=== PATIENT | male | born 1995 | race Caucasian/White ===

== ENCOUNTER 2020-08-17 14:05 | Outpatient (RCR) | payer OTHER, SELFPAY | END 2020-10-10 23:59 | LOC: IMMUN 14:05 | PROVIDERS: Visit Provider Family Medicine | DX: Z23 Encounter for immunization (principal) | CPT/HCPCS: 0001A; 0002A; 91300 ==

== ENCOUNTER → 2022-05-09 | Outpatient (CLI) | payer OTHER, SELFPAY ==
[2022-05-09 17:29] LABS: Bacteria 0 SEEN /hpf (None Seen); Mucous, Urine 0 SEEN /hpf (<or=2+); Red Blood Cells-Urine 0 SEEN /hpf (0-5); Squamous Epithelial Cells - UA 0 SEEN /hpf (0-5); White Blood Cells 0 SEEN /hpf (0-5)
[2022-05-09 18:37] LABS: Color, Urine Straw (Yellow); Glucose, Dipstick Normal (Normal); Ketone-Dipstick Negative (Negative); Leukocyte Esterase-Dipstick Negative /ul (Negative); Nitrite-Dipstick Negative (Negative); Occult Blood-Urine 150 /ul (Negative); Protein-Dipstick Negative (Negative); Urine Bilirubin Dipstick Negative (Negative); Urine Clarity Clear (Clear); Urine Urobilinogen Normal (Normal)
== END | disposition home or self-care (01) ==
PROVIDERS: Visit Provider Physician Assistant
DX: R31.9 Hematuria, unspecified (principal)
CPT/HCPCS: 81001; 87086; 87088

== ENCOUNTER 2022-10-06 16:29 | Emergency (ER) | payer OTHER, SELFPAY ==
[2022-10-06 16:31] VITALS: BP 168/107; PULSE 108; RESP 16; TEMP 36.6; O2SAT 97; BMI 23.0
--- NOTE | 2022-10-06 17:07 | EKG12_ITS ---
Test Reason : CHEST TIGHTNESS Blood Pressure : / mmHG Vent. Rate : 100 BPM Atrial Rate : 100 BPM P-R Int : 152 ms QRS Dur : 100 ms QT Int : 338 ms P-R-T Axes : 072 069 046 degrees QTc Int : 436 ms Normal sinus rhythm RSR' or QR pattern in V1 suggests right ventricular conduction delay Borderline ECG Confirmed by ADAN PANDEY, DIEGO ([id number]), book or script editor MARIA EUGENIA TOMLIN ([id number]) on 10/08/2022 8:47:54 AM Referred By: Confirmed By:DIEGO ARELLANO MD
--- NOTE | 2022-10-06 17:11 | ED.RN ---
no old EKG
[2022-10-06 17:28] LABS: Absolute Lymphocyte Count 1.43 X10^3/uL (0.83-4.51); Absolute Neutrophil Count 4.4 X10^3/uL (2.0-7.7); Basophil# 0.04 X10^3/uL; Basophil% 0.6 % (0-1); Eosinophil# 0.01 X10^3/uL; Eosinophils% 0.2 % (0-5); Hematocrit 46.4 % (40-54); Hemoglobin 16.2 g/dL (13.0-16.5); Lymphocyte # 1.43 X10^3/ul (0.83-4.51); Lymphocyte % 22.9 % (19-41); Mean Corp Hgb Conc 34.9 g/dL (32-36); Mean Corpuscular Hgb 28.8 pg (27.0-32.0); Mean Corpuscular Volume 82.6 fL (80-94); Mean Platelet Vol. 9.2 fl (6.2-12.0); Monocyte# 0.36 X10^3/uL; Monocyte% 5.8 % (0-10); NRBC Flagged by Analyzer 0 % (0-5); Neutrophil # 4.39 X10^3/uL (2.7-7.7); Neutrophil % 70.2 % (47-70); Platelet Count 301 K/mm3 (150-450); RBC Distribution Width CV 11.4 % (11.6-14.6); RBC Distribution Width SD 34.2 fl (35.1-43.9); Red Blood Count 5.62 M/mm3 (4.6-6.2); White Blood Count 6.3 K/mm3 (4.4-11.0)
--- NOTE | 2022-10-06 17:40 | RAD_ITS ---
STUDY: X-RAY CHEST REASON FOR EXAM: Male, 26 years old. chest pain TECHNIQUE: Frontal and lateral views of the chest. COMPARISON: None. FINDINGS: The lungs are clear and expanded. There is no demonstrated pleural abnormality. Normal size heart. Normal mediastinum and kathrine. Normal visualized pulmonary arteries. Normal visualized aortic arch and descending thoracic aorta. Normal visualized thoracic spine. Normal visualized ribs, clavicles, and shoulders. There is no demonstrated abnormality of the visualized soft tissue structures of the upper abdomen. RAD/Chest PA and Lateral IMPRESSION: Normal x-ray examination of the chest. Electronically Signed: Gurinder Pichardo MD at 18:47 EDT ,
[2022-10-06 17:51] LABS: Anion Gap 7 (5-15); BUN 10 mg/dL (7-18); BUN/Creat Ratio 11.4 RATIO (10-20); Calcium,Total 9.6 mg/dL (8.5-10.1); Chloride 105 mmol/L (98-107); Creatinine, Serum 0.88 mg/dL (0.70-1.30); EST Glomerular Filtration Rate 109 mL/min (>60); Est Glom Filt Rate - Afr Amer 132 mL/min (>60); Glucose 95 mg/dL (74-106); Magnesium 2.4 mg/dL (1.6-2.6); Potassium 3.6 mmol/L (3.5-5.1); Sodium Level 139 mmol/L (136-145); Troponin-I HS 30 pg/mL (3.0-78.0)
[2022-10-06] MEDS: 0.9% Normal Saline 1,000 ML 999 ML IV (18:06)
[2022-10-06 18:07] VITALS: BP 143/97; PULSE 101; RESP 16; O2SAT 99
[2022-10-06 18:33] LABS: D-Dimer Quantitative (DVT/PE) < 0.27 FEU/ug/m (0.27-0.49)
--- NOTE | 2022-10-06 19:26 | ED.VIS.CHEST ---
HPI History of Present Illness Chief Complaint: Palpitations Informant: patient Narrative Narrative: Patient is a 26-year-old male that denies any significant past medical history presenting with chest pain. Patient states he has been having some pain in left-sided chest for past 1 to 2 weeks. He notes that he was shooting a compound bow was unsure if it was related to that. However he has started to feel like his heart is racing. Is worse at rest. He started feel lightheaded. He states he cannot sleep but is not sure if it is because he keeps thinking about his symptoms. Today he was having chest tightness. He also is been feeling clammy intermittently. Denies any nausea or vomiting. Does have a family history of his grandfather having a pacemaker and his father and paternal grandmother having a congenital bicuspid valves. Patient drinks about 2 beers a week. He intermittently uses THC edibles but has not taken anything recently. Denies any tobacco use or any other illicit drug use. Denies any swelling of his legs. Denies a history of DVT or PE. Did take aspirin yesterday and felt like it did help for a time but then his symptoms came back. No reports of any syncope. No other complaints at this time. [facility] Medical History Hematuria Home Medications hydroxyzine HCl 25 mg tablet 25 mg PO TID PRN anxiety #20 tabs 10/06/22 [Rx Last Taken Unknown] Allergy/AdvReac Type Severity Reaction Status Date / Time No Known Allergies Allergy Verified 10/06/22 16:33 Family History Grandfather Pacemaker Father Hypertension Sister Hypertension Aunt Hypertension Grandmother Hypertension Social History Smoking Status: Never smoker ROS ROS ED Constitutional Constitutional ED: Reports sweats and other Details: fatigue, lightheaded ; Denies chills or fever(s) Eyes Eyes: Denies blurry vision ENT ENT ED: Denies rhinorrhea or sore throat Cardiovascular Cardiovascular: Reports as per HPI, chest pain, palpitations and racing heartbeat Respiratory/Chest Respiratory/Chest: Denies cough, dyspnea or dyspnea on exertion Gastrointestinal Gastrointestinal: Denies abdominal pain, nausea or vomiting Musculoskeletal Musculoskeletal: Denies arthralgias, back pain, myalgias or neck pain Integumentary Denies rash Neurologic Neurologic: Denies headache(s) or weakness Psychiatric Psychiatric: Reports anxiety Hematologic/Lymphatic Hematologic/Lymphatic: Denies easy bleeding or easy bruising EXAM Physical Exam Const Vital Signs: 10/06/22 16:31 10/06/22 18:07 10/06/22 19:35 Temperature 98 F Temperature Source Temporal Pulse Rate 108 H 101 H 92 Respiratory Rate 16 16 20 H Blood Pressure 168/107 H 143/97 H 145/93 H Blood Pressure Mean 127 112 110 Pulse Ox 97 99 96 Oxygen Delivery Method Room Air Room Air Room Air 10/06/22 21:53 Temperature Temperature Source Pulse Rate 83 Respiratory Rate 12 Blood Pressure 153/98 H Blood Pressure Mean 116 Pulse Ox 98 Oxygen Delivery Method Room Air Positive well nourished and well developed General Appearance ED: well developed and NAD HEENT Reports moist mucous membranes Eyes PERRL and EOMs intact bilaterally Neck supple and no JVD Chest Wall inspection of chest normal and palpation of chest normal Resp normal respiratory effort Cardio regular rhythm and no murmurs Rate: tachycardic Peripheral Pulses: pulses 2+ throughout GI normal to inspection, nondistended, normoactive bowel sounds and soft to palpation Back/Spine no CVA tenderness Extremity normal to inspection General Extremety ED: Negative for edema General Extremity: Negative for edema Neuro oriented x3 Sensorium / Orientation: awake and alert Motor Exam: Negative for general weakness Psych mental status grossly normal Skin no rashes or lesions noted and no wounds Heart Score History: Slightly/Non-Suspicious ECG: Nonspecific Repolarization Age: </= 45 years Risk Factors: 1 or 2 Risk Factors Troponin: </= Normal Limit Score: 2 MDM MDM MDM Narrative Medical decision making narrative: Patient evaluated for 1 week of intermittent chest pain, is now having lightheadedness and palpitations. He is mildly tachycardic in the ER however chart review shows that he does have a history of tachycardia while in the emergency room. He has family history of bicuspid aortic valve however patient does not have any murmurs never been told he has a murmur. EKG is not consistent with acute ischemic process or pericarditis. Cardiac work-up including D-dimer, high-sensitivity troponin, chest x-ray and then a TSH, CBC and BMP largely normal. His magnesium is normal. Discussed with patient that the exact cause of his symptoms is not clear and at this time there does not appear to be an acute life-threatening emergency. He is amenable to trying a dose of Ativan and Toradol for symptoms. On repeat evaluation he states he is feeling much better. Will discharge home with outpatient follow-up. Counseled that he does need further cardiac follow-up for his symptoms likely an ultrasound of the heart to look for any structural abnormalities valvular disease and possibly Holter monitor. He is given referral for cardiology encouraged to follow-up with his primary care doctor in the meantime. Is given a short course of hydroxyzine in case there is an anxiety component. Patient and are agreeable this plan of care. Patient is home in stable and improved condition. Lab Data Attestation: I reviewed the patient's lab results. Labs: Laboratory Results - last 24 hr 10/06/22 10/06/22 10/06/22 17:20 17:20 18:00 WBC 6.3 RBC 5.62 Hgb 16.2 Hct 46.4 MCV 82.6 MCH 28.8 MCHC 34.9 RDW Std Deviation 34.2 L RDW Coeff of Miriam 11.4 L Plt Count 301 MPV 9.2 Immature Gran % (Auto) 0.300 Neut % (Auto) 70.2 H Lymph % (Auto) 22.9 [place] % (Auto) 5.8 Eos % (Auto) 0.2 Baso % (Auto) 0.6 Absolute Neuts (auto) 4.4 Absolute Lymphs (auto) 1.43 Nucleated RBC % 0 D-Dimer Quant (PE/DVT) < 0.27 L Sodium 139 Potassium 3.6 Chloride 105 Carbon Dioxide 27.0 Anion Gap 7 BUN 10 Creatinine 0.88 Estim Creat Clear Calc 132.30 Est GFR (MDRD) Af Amer 132 Est GFR (MDRD) Non-Af 109 BUN/Creatinine Ratio 11.4 Glucose 95 Calcium 9.6 Magnesium 2.4 Troponin I High Sens 30 TSH 1.50 Radiography Diagnostic Testing: Clinical Impression(s) from Imaging Studies Chest X-Ray 10/06/22 17:40 IMPRESSION: Normal x-ray examination of the chest. Electronically Signed: Gurinder Pichardo MD at 18:47 EDT , Rhythm Strip Rhythm Strip: Sinus Rhythm Rate: 100 Ectopy: None EKG Initial EKG: Attestation: I personally reviewed and interpreted this EKG as follows: Comments: Normal sinus rhythm rate of 100 bpm Normal axis Normal intervals RSR prime pattern in V1 suggestive of right ventricular conduction delay Normal ST segments No findings consistent with Brugada, HOCM, WPW or prolonged QTc Discharge Plan Triage Chief Complaint: Palpitations ED Provider: Sharla Holloway Dx/Rx/DC Orders Clinical Impression: Tachycardia, Chest pain Instructions: ED Chest Pain, Uncertain Cause, ED Tachycardia: PAT Prescriptions: New hydroxyzine HCl 25 mg tablet 25 mg PO TID PRN (Reason: anxiety) Qty: 20 0RF Primary Care Provider: Evita Martins NP Referrals: Denia King MD [Med Staff - Active Staff] - As soon as possible Evita Martins NP, OBSTETRICS AND GYNECOLOGY PROFESSOR-C [Primary Care Provider] - Activity Restrictions/Additional Instructions: Your work-up was largely normal today. The exact cause of your symptoms is not entirely clear however there is no signs of a blood clot, pneumonia, collapsed lung, heart attack or inflammation to the heart. Continue taking anti-inflammatory such as ibuprofen a total of 600 mg (3 [id number] pills) every 6 hours as needed for pain. You have also been given a short course of hydroxyzine in case there is a component of anxiety to this. I do recommend he follow-up outpatient for further evaluation of this including further cardiac testing. You been given referral for cardiology. 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 Disposition Disposition: Home, Self Care Discharge Date/Time: 10/06/22 22:08
[2022-10-06] MEDS: Ketorolac 15 MG/ML Vial IV (19:31)
[2022-10-06] MEDS: LORazepam 2 MG/ML Syringe 0.5 MG IV (19:32)
[2022-10-06 19:35] VITALS: BP 145/93; PULSE 92; RESP 20; O2SAT 96
[2022-10-06 21:53] VITALS: BP 153/98; PULSE 83; RESP 12; O2SAT 98
== END 2022-10-06 22:08 | disposition home or self-care (01) ==
PROVIDERS: Emergency Provider Emergency Medicine; PCP Nurse Practitioner Family; Visit Provider Emergency Medicine
DX: R07.9 Chest pain, unspecified (principal); R00.0 Tachycardia, unspecified
CPT/HCPCS: 71046; 80048; 83735; 84443; 84484; 85025; 85379; 93005; 96361; 96374; 96375; 99282; A4216

== ENCOUNTER → 2022-10-31 | Outpatient (CLI) | payer OTHER, SELFPAY | END | disposition home or self-care (01) | LOC: PSN 07:21 | PROVIDERS: PCP Nurse Practitioner Family; Referring Provider Internal Medicine Cardiovascular Disease; Visit Provider Internal Medicine Cardiovascular Disease | DX: R00.2 Palpitations (principal); R00.0 Tachycardia, unspecified; R07.9 Chest pain, unspecified | CPT/HCPCS: 93225; 93226 ==

== ENCOUNTER 2022-11-03 11:30 | Emergency (ER) | payer OTHER, SELFPAY ==
[2022-11-03 11:31] VITALS: BP 143/100; PULSE 106; RESP 16; TEMP 36.6; O2SAT 98; BMI 22.8
--- NOTE | 2022-11-03 11:39 | EKG12_ITS ---
Test Reason : PALPATATIONS Blood Pressure : / mmHG Vent. Rate : 087 BPM Atrial Rate : 087 BPM P-R Int : 140 ms QRS Dur : 096 ms QT Int : 352 ms P-R-T Axes : 044 071 048 degrees QTc Int : 423 ms Normal sinus rhythm RSR' or QR pattern in V1 suggests right ventricular conduction delay Borderline ECG Confirmed by ANI PANDEY, TRISTIN ([id number]), social media editor MARIA EUGENIA TOMLIN ([id number]) on 11/06/2022 11:43:12 AM Referred By: FLYNN/AD Confirmed By:MARQUITA LAW MD
--- NOTE | 2022-11-03 12:21 | EDS_ITS ---
HPI <JANETTE Contreras - Last Filed: 11/03/22 12:26> History of Present Illness Chief Complaint: Palpitations Narrative Narrative: Patient is a 26-year-old male with no significant ankle history presents to the emergency department with tenured palpitations for the last 1 month. Patient was seen here on October 06, 2022, he did have a full work-up including a D-dimer, TSH, cardiac work-up, this was all unremarkable. Patient was referred to cardiology, patient did see cardiology and had a Holter monitor placed. Patient was placed on hydroxyzine for concern for anxiety. Patient states last evening and today, he is taking 2-3 hydroxyzine with no relief. Patient denies any specific chest pain, denies any fevers, chills, nausea or vomiting. He is here for reevaluation. PFSH <JANETTE Contreras - Last Filed: 11/03/22 12:26> [facility] Medical History (Updated 11/03/22 @ 12:25 by JANETTE Contreras) Chest pain Hematuria Palpitations Tachycardia Home Medications hydroxyzine HCl 25 mg tablet 25 mg PO TID PRN anxiety #20 tabs 10/06/22 [Rx Last Taken Unknown] lorazepam 0.5 mg tablet (Ativan) 0.5 mg PO BID 4 days #8 tabs 11/03/22 [Rx Last Taken Unknown] Allergy/AdvReac Type Severity Reaction Status Date / Time No Known Allergies Allergy Verified 11/03/22 11:34 Family History Grandfather Pacemaker Father Hypertension Sister Hypertension Aunt Hypertension Grandmother Hypertension Surgical History Hx of adenoidectomy Social History Smoking Status: Never smoker alcohol intake: current alcohol intake frequency: a few times a week details: occasional substance use type: does not use caffeine: No ROS <JANETTE Contreras - Last Filed: 11/03/22 12:26> ROS ED ROS Narrative Constitutional: Negative for fever, chills, weight loss, weakness Eyes: Negative for vision loss, vision change, double vision ENT: Negative for any sore throat, ear pain, congestion Cardiovascular: Negative for any chest pain. Positive chest tightness, palpitations Respiratory: Negative for any cough, sputum production, hemoptysis, dyspnea, dyspnea on exertion, orthopnea Gastrointestinal: Negative for any abdominal pain, nausea, vomiting, diarrhea, constipation, blood in stool, blood in vomit : Negative for any urinary frequency, dysuria, retention, blood in urine Muscle skeletal: Negative for any muscle joint pain, stiffness, myalgias, arthralgias, neck pain, back pain Neurological: Negative for any headache, syncope, numbness or tingling, dizziness Skin: Negative for any rashes, lumps, itching, abrasions, lacerations Psychiatric: Negative for any depression, anxiety, stress, suicidal ideation, homicidal ideation Hematologic: Negative for any easy bruising, excessive bruising, easy bleeding Allergies: Negative for any eczema, hives, rash EXAM <JANETTE Contreras - Last Filed: 11/03/22 12:26> Physical Exam Narrative Exam Narrative: Vital signs reviewed. HEET: Head normocephalic atraumatic, TMs clear bilaterally. Posterior pharynx is clear, moist mucous membranes. Nares clear bilaterally. Neck: Supple with no lymphadenopathy or tenderness. No signs of meningismus, negative jolt sign. Cardiac: Regular rate and rhythm no murmurs gallops or rubs, equal peripheral pulses bilaterally. Respiratory: Lungs clear to auscultation bilaterally. No chest tenderness. Abdomen: Soft, nontender, nondistended. No abdominal bruit or pulsatile masses. No hepatosplenomegaly Extremities: No peripheral edema, no signs of gross trauma or deformity. Active full range of motion of all extremities. Neuro: Cranial nerves II through XII intact, no focal neurological deficits. Skin: Clean dry and intact with no rash, purpura, petechiae, vesicles or pustules. Backs/flank: No CVA tenderness, no midline spinal tenderness, no deformity. Psych: Normal mood and affect. No SI, HI or acute psychosis. Const Vital Signs: 11/03/22 11:31 Temperature 97.8 F Temperature Source Temporal Pulse Rate 106 H Respiratory Rate 16 Blood Pressure 143/100 H Blood Pressure Mean 114 Pulse Ox 98 Oxygen Delivery Method Room Air <Dr. Mic Shafer MD - Last Filed: 11/03/22 12:35> Physical Exam Const Vital Signs: 11/03/22 11:31 Temperature 97.8 F Temperature Source Temporal Pulse Rate 106 H Respiratory Rate 16 Blood Pressure 143/100 H Blood Pressure Mean 114 Pulse Ox 98 Oxygen Delivery Method Room Air [facility] <JANETTE Contreras - Last Filed: 11/03/22 12:26> [facility] EKG Normal sinus rhythm: Attestation: I personally reviewed and interpreted this EKG as follows: Comments: EKG shows normal sinus rhythm, rate of 87 bpm, SC 140 ms, QRS duration 96 ms, no acute ST elevation, no acute infarct noted. Treatment and Re-Evaluation :: Patient appears generally well, patient appears nontoxic, vital signs are stable. Patient presents to the emergency department with complaints of ongoing palpitations, using hydroxyzine with no relief. Patient's EKG is unremarkable, is no evidence of any ACS, MO. Patient's physical examination was grossly unr emarkable. Patient clear lung sounds, patient did have a full work-up 1 month ago. He has seen cardiology and had a 24-hour Holter monitor has not heard any results. I spoke with the patient at length, he does believe this could be anxiety. At this time, there is no evidence suspect any acute cardiopulmonary pathology. Patient will be given 0.5 mg of Ativan here, he will be given a short prescription. He will continue to follow-up with cardiology as well as a counselor. He is happy with the plan of care, all questions answered. Patient was given strict return precautions. Patient is happy with the plan of care and is stable for discharge. <Dr. Mic Shafer MD - Last Filed: 11/03/22 12:35> [facility] Narrative Medical decision making narrative: I have personally performed a face to face assessment of the patient and have reviewed the HUNTER Note. I performed a substantive portion of the visit including all aspects of the following. My rene findings include: History is 26-year-old male with palpitations. History of anxiety. Started hydroxyzine does not believe it is working. Had a significant work-up for this a month ago all of which was unremarkable. Including cardiac enzymes, blood work, TSH, chest x-ray and EKG. Exam is [well-appearing 26-year-old. Vital signs stable afebrile. Pulse ox 90% on room air no hypoxia. He is in no distress. HEENT exam unremarkable. Neck nontender no JVD. Lungs clear to auscultation bilaterally. Heart regular r hythm no murmur. Abdomen is soft nontender. Moving all 4 extremities. Calves are nontender without edema or cords. Neurologic exam unremarkable.] Medical Decision Making [exam benign. We reviewed his prior visits and work-ups are unremarkable. Be discharged home with Ativan as needed.] Other additions or changes: [None] Discharge Plan Triage Chief Complaint: Palpitations ED Midlevel Provider: Kenroy Arroyo ED Provider: Mic Shafer Dx/Rx/DC Orders Clinical Impression: Palpitation, Anxiety Instructions: ED Anxiety Reaction, ED Palpitations Prescriptions: New lorazepam [Ativan] 0.5 mg tablet 0.5 mg PO BID 4 Days Qty: 8 0RF No Action hydroxyzine HCl 25 mg tablet 25 mg PO TID PRN (Reason: anxiety) Qty: 20 0RF Primary Care Provider: Evita Martins NP Referrals: Evita Martins NP, ECONOMIC ADVISER-C [Primary Care Provider] - Activity Restrictions/Additional Instructions: Please continue to follow-up. Disposition Disposition: Home, Self Care
[2022-11-03] MEDS: LORazepam 0.5 MG Tablet PO (12:39)
== END 2022-11-03 12:45 | disposition home or self-care (01) ==
LOC: ED 12:32
PROVIDERS: Emergency Provider Emergency Medicine; PCP Nurse Practitioner Family; Visit Provider Emergency Medicine
DX: R00.2 Palpitations (principal); F41.9 Anxiety disorder, unspecified
CPT/HCPCS: 93005; 99282

== ENCOUNTER → 2022-11-08 | Outpatient (CLI) | payer OTHER, SELFPAY ==
--- NOTE | 2022-11-08 12:21 | ECHOD_ITS ---
Reason For Study: CHEST PAIN Procedure This was a 2D Doppler, Color Flow transthoracic echocardiogram. Exam performed in department. Left Ventricle Normal LV size. Apical false tendon noted. Left ventricular systolic function is normal. The estimated ejection fraction is 60 %. Normal diastololic function. No regional wall motion abnormalities noted. Right Ventricle Normal RV size. Normal systolic function. Atria The left and right atria are normal. Mitral Valve The mitral valve is structurally normal. No prolapse or stenosis seen. No mitral valve insufficiency. Tricuspid Valve Normal tricuspid valve. Trivial tricuspid valve insufficiency. Unable to estimate RV systolic pressure due to insufficient tricuspid regurgitant envelope. Aortic Valve Trisinus/trileaflet aortic valve. No aortic valve insufficiency. Pulmonic Valve Normal pulmonic valve. Great Vessels Normal aortic root. Pericardium/Pleural No pericardial effusion. MMode/2D Measurements & Calculations LVIDd: 4.2 cm IVSd: 1.1 cm Ao root diam: 3.0 cm LVIDs: 3.3 cm LVPWd: 1.1 cm FS: 22.3 % LAV(MOD-bp): 25.4 ml LVAd ap4: 24.6 cm2 SV(MOD-sp4): 35.0 ml LAV(MOD-bp) Indexed: 13.1 ml/m2 LVLd ap4: 8.5 cm LAV(MOD-sp2): 41.9 ml EDV(MOD-sp4): 60.7 ml LAV(MOD-sp4): 16.3 ml EDV(sp4-el): 60.3 ml LVAs ap4: 14.6 cm2 LVLs ap4: 7.1 cm ESV(MOD-sp4): 25.8 ml ESV(sp4-el): 25.4 ml EF(MOD-sp4): 57.6 % EF(sp4-el): 57.8 % SV(sp4-el): 34.9 ml LA A4 area: 9.2 cm2 RA A4 area: 13.7 cm2 TAPSE: 2.6 cm Time Measurements MV dec time: 0.16 sec Doppler Measurements & Calculations MV E max jony: 78.3 cm/sec Lat Peak E' Jony: 18.8 cm/sec Med Peak E' Jony: 16.3 cm/sec MV A max jony: 74.9 cm/sec E/E' lat: 4.2 E/E' med: 4.8 MV E/A: 1.0 MV V2 max: 122.4 cm/sec MV dec slope: 525.5 cm/sec2 Ao V2 max: 130.2 cm/sec MV max P.0 mmHg Ao max P.8 mmHg MV V2 mean: 88.4 cm/sec Ao V2 mean: 94.1 cm/sec MV mean P.5 mmHg Ao mean P.0 mmHg MV V2 VTI: 22.1 cm Ao V2 VTI: 23.3 cm AV (velocity ratio): 1.0 LV V1 max: 127.8 cm/sec LV V1 max P.5 mmHg LV V1 mean P.2 mmHg LV V1 mean: 96.9 cm/sec LV V1 VTI: 24.2 cm ECHO/Echo Complete Interpretation Summary The estimated ejection fraction is 60 %. Trivial tricuspid valve insufficiency. Ordering Physician: Denia King Referring Physician: Denia King Performed By: Elva Kumar and Student
--- NOTE | 2022-11-15 08:58 | STRESSREP ---
Stress Test Report Date: 11/08/2022 Procedure: Exercise tolerance test Indications: Chest pain Consent: Per the patient Procedure: The patient exercised on a Catalino protocol for 12 minutes and 30 seconds achieving a peak heart rate of 196 bpm (102% predicted maximal heart rate) with a peak blood pressure 174/62 mmHg and a peak MET capacity of approximately 15.3 MET's. The baseline ECG demonstrated normal sinus rhythm. The peak exercise ECG demonstrated no ischemic changes. There were no cardiac dysrhythmias pretest, during exercise, or recovery. The functional capacity was considered excellent. The patient had no complaints of chest discomfort during exercise or recovery. The examination was discontinued secondary to target heart rate being achieved. Impression: 1. Technically adequate (percent predicted maximal heart rate greater than 85%) exercise tolerance test 2. Peak exercise ECG with no ischemic changes at a higher workload 3. There were no cardiac dysrhythmias during exercise or recovery This note was generated with Staff Rank[employer] software. It may contain incorrect words, spelling, and punctuation that were not noted in checking the note before signing.
== END | disposition home or self-care (01) ==
LOC: CVS 12:20
PROVIDERS: PCP Nurse Practitioner Family; Referring Provider Internal Medicine Cardiovascular Disease; Visit Provider Internal Medicine Cardiovascular Disease
DX: R00.2 Palpitations (principal); R07.9 Chest pain, unspecified; R00.0 Tachycardia, unspecified
CPT/HCPCS: 93017; 93306